=== PATIENT | female | born 1960 | race Caucasian/White ===

== ENCOUNTER → 2024-02-04 15:33 | Outpatient (REF) | payer OTHER, SELFPAY | LOC: HWWDC 15:33 | PROVIDERS: ATTENDING PHYSICIAN Obstetrics & Gynecology Gynecology | DX: Z12.31 Encounter for screening mammogram for malignant neoplasm of breast (principal) | CPT/HCPCS: 77063; 77067 ==

== ENCOUNTER → 2024-10-03 10:55 | Outpatient (REF) | payer OTHER, SELFPAY | LOC: WDC 10:55 | PROVIDERS: ATTENDING PHYSICIAN Obstetrics & Gynecology Gynecology; FAMILY PHYSICIAN Family Medicine | DX: N64.4 Mastodynia (principal) | CPT/HCPCS: 76642; 77061; 77065 ==

== ENCOUNTER → 2025-04-11 14:14 | Outpatient (REF) | payer MEDICARE, SELFPAY | LOC: HWWDC 14:14 | PROVIDERS: ATTENDING PHYSICIAN Obstetrics & Gynecology Gynecology; FAMILY PHYSICIAN Family Medicine | DX: Z12.31 Encounter for screening mammogram for malignant neoplasm of breast (principal) | CPT/HCPCS: 77063; 77067 ==

== ENCOUNTER 2025-09-25 10:45 | Emergency (ER) | payer OTHER, SELFPAY ==
[2025-09-25 10:52] VITALS: BP 139/92
--- NOTE | 2025-09-25 12:12 | ED.GENMED ---
History of Present Illness
General
Chief Complaint: Abdominal Pain
Time Seen by Provider: 09/25/25 11:50
History of Present Illness
History of Present Illness:
65-year-old female presents to the Emergency Department for evaluation of left lower quadrant and left flank pain for the past several days. Pain was initially gradual in onset and mild but is been worsening. Notes colicky nature to pain. No
lower urinary tract voiding symptoms, bowel symptoms, fever, chills, or sweats. Pain has become increasingly severe today despite use of NSAIDs. No prior intra-abdominal surgical history.
Past History
Past History
ED Past Medical History: None
ED Past Surgical History: None
Social History
Tobacco: Non-smoker
Alcohol: None
Drug: None
Living: with family
Review of Systems
Review of Systems
Allergies reviewed?: Yes
All Other Systems: ROS reviewed and negative except as documented in HPI and ROS
Phy Exam
Physical Exam
Physical Exam:
GEN: Well appearing, NAD, WDWN
HEENT: Oral mucosa moist, no scleral icterus
Cardiac: Regular rate
Lung: No respiratory distress, no tachypnea
Abdomen: Soft, mild left lower quadrant tenderness, no rigidity or peritoneal signs
MSK: No gross deformity or injuries
Skin: Good color, no pallor or jaundice, no rashes
Neuro: AO x3, moves all extremities freely
Psych: Calm, cooperative
Course
Orders/Labs/Results
Orders:
Orders
09/25/25 12:03
CT Abd/Pel (IV only)-DH only Urgent
Comment:
Reason For Exam: LLQ pain
Ketorolac [Toradol] 15 mg IV NOW STA
09/25/25 12:06
Complete Blood Count/With Diff Urgent
Comprehensive Metabolic Panel Urgent
Lipase Urgent
09/25/25 12:38
Urinalysis Reflex To Culture Urgent
Date Specimen was Collected: 09/25/25
Time Specimen was Collected: 12:22
Urine Microscopic Reflex Cult Urgent
Abnormal Lab Results
09/25/25 09/25/25
12:06 12:38
MCH 31.2 H pg
(27.0-31.0)
MCHC 32.5 L g/dL
(33.0-37.0)
Glucose 101 H mg/dl
(70-99)
ALT 37 H U/L
(0-35)
Ur Occult Blood Reflex 1+ A
(Negative)
Urine Bacteria (Reflex) Few A
(Negative)
09/25/25 12:06
09/25/25 12:06
Vital Signs
Initial and Last Documented VS:
Initial Vital Signs
Temp Pulse Resp BP Pulse Ox
98.6 F 81 16 139/92 96
09/25/25 10:52 09/25/25 10:52 09/25/25 10:52 09/25/25 10:52 09/25/25 10:52
Last Documented Vital Signs
Temp Pulse Resp BP Pulse Ox
98.6 F 77 18 144/104 98
09/25/25 10:52 09/25/25 14:09 09/25/25 14:09 09/25/25 14:09 09/25/25 14:09
MDM/Problems Addressed
MDM/Problems Addressed:
Initial differential diagnosis considerations include diverticulitis, kidney stone, UTI/a send UTI, musculoskeletal strain. Will obtain labs and CT for further clarity
*Pulse Oximetry
SaO2: 96
Oxygen Mode of Delivery: Room air
Patient hypoxic: no
*Critical Care Note
Total Time (30-74mins, 75-104mins- exclusive of procedures): Not Applicable
ED Attending Note
-
Portions of this chart may have been created with voice recognition software.� Occasional wrong word or��sound alike� substitutions may have occurred due to the inherent limitations of voice recognition software.
Discharge Plan
Departure
Patient Disposition: Home (Routine Discharge)
Date of Disposition: 09/25/25
Time of Disposition: 14:26
Patient with high blood pressure during this ER visit?: No
Discharge Problem:
Abdominal pain, lower
Instructions: Constipation, Adult (DC)
Referrals:
Manuel Clark DO [Family Provider, Family Practice]
Activity Restrictions/Additional Instructions:
Crease fluids and fiber, try laxatives or stool softeners
You were noted to have a left lower lung nodule measuring 3 mm. This typically will require follow-up imaging in 12 months for reassessment, this can be obtained by your primary care physician
Interventions
Interventions:
*Risk Screen - Suicide Last Done: 09/25/25 10:52
*General Assessment Last Done: 09/25/25 10:52
*Neglect/Abuse Screening Last Done: 09/25/25 10:52
*Nursing Disposition Last Done: 09/25/25 14:48
WJ-Llmeze-Plxzxyaokn Assessment Last Done: 09/25/25 12:00
Discharge Date and Time
Discharge Date/Time: 09/25/25 14:48
Print Language: MALAY
[2025-09-25 12:22] LABS: Hematocrit 45.9 % (37.0-47.0); Hemoglobin 14.9 g/dL (12.0-16.0); Mean Corp Hgb Conc. 32.5 g/dL (33.0-37.0); Mean Corpuscular Volume 96.2 fL (81.0-99.0); Nucleated Red Blood Cells % 0 %; Platelet Count 237 10^3/uL (130-400); Red Cell Dist. Width 12.6 % (11.5-14.5)
[2025-09-25] MEDS: TORADOL 15 MG IV (12:34)
[2025-09-25 12:52] LABS: ALT (SGPT) 37 U/L (0-35); AST (SGOT) 25 U/L (14-36); Albumin 4.6 g/dl (3.5-5.0); Alkaline Phosphatase 51 U/L (38-126); Blood Urea Nitrogen 15 mg/dl (7-17); Calcium 9.7 mg/dl (8.4-10.2); Carbon Dioxide 29 mmol/L (22-30); Chloride 102 mmol/L (98-107); Glucose 101 mg/dl (70-99); Lipase 60 U/L (23-300); Potassium 4.5 mmol/L (3.5-5.1); Sodium 135 mmol/L (135-145); Total Protein 7.6 g/dl (6.3-8.2); eGFR > 60.00
[2025-09-25 13:44] LABS: Urine Character Clear (Clear)
[2025-09-25 14:09] VITALS: BP 144/104
[2025-09-25 14:17] LABS: Urine Red Blood Cell 0-2 /HPF (0-2); Urine Squamous Cell 0-2 /LPF (Few); Urine White Cell 0-2 /HPF (0-5)
== END 2025-09-25 14:48 | disposition home or self-care (01) ==
LOC: EMR 10:45
PROVIDERS: Physician Assistant; EMERGENCY PHYSICIAN Emergency Medicine; FAMILY PHYSICIAN Family Medicine
DX: R10.32 Left lower quadrant pain (principal); R10.A2 Flank pain, left side
CPT/HCPCS: 96374; 99284; 74177; 80053; 81003; 81015; 83690; 85025; Q9967

== ENCOUNTER → 2025-10-27 10:03 | Outpatient (REF) | payer OTHER, SELFPAY | LOC: HWRAD 10:03 | PROVIDERS: ATTENDING PHYSICIAN Obstetrics & Gynecology Gynecology; FAMILY PHYSICIAN Family Medicine | DX: N95.0 Postmenopausal bleeding (principal) | CPT/HCPCS: 76830; 76856 ==